=== PATIENT | female | born 1975 | race Two or more races ===

== ENCOUNTER 2017-04-26 07:50 | Emergency (ER) | payer MEDICAID ==
[~2017-04-26] VITALS: Ht 167.6 cm; Wt 71.5 kg
[2017-04-26] MEDS ORDERED: GABA-827 PO (08:04)
[2017-04-26] MEDS ORDERED: SERT50TA5 PO (08:04)
[2017-04-26] MEDS ORDERED: CETI-237 PO (08:04)
[2017-04-26] MEDS ORDERED: HYDR25TA11 PO (08:04)
[2017-04-26] MEDS ORDERED: PANT40TA5 PO (08:04)
[2017-04-26] MEDS ORDERED: KETOROLAC 30 MG/1 ML IM ONE (08:30)
[2017-04-26] MEDS ORDERED: KETOROLAC 30 MG/1 ML ONE (08:33)
[2017-04-26 08:49] LABS: HEMATOCRIT 41.3 % (34.6-47.8); HEMOGLOBIN 13.7 g/dL (11.7-16.4); WHITE BLOOD COUNT 4.8 x10^3/uL (3.4-10)
[2017-04-26] MEDS ORDERED: ONDANSETRON ODT 4 MG ONE (08:53)
[2017-04-26] MEDS ORDERED: ONDANSETRON ODT 4 MG PO ONE (09:00)
[2017-04-26 09:01] LABS: BLOOD UREA NITROGEN 23 mg/dL (7-18)
[2017-04-26 10:04] VITALS: BP 112/76
== END 2017-04-26 10:05 | disposition home or self-care (01) ==
LOC: ED 08:25
DX: M13.0 Polyarthritis, unspecified (principal); J45.909 Unspecified asthma, uncomplicated
CPT/HCPCS: 36415; 80048; 82040; 85025; 96372; 99284; J1885; Q0162

== ENCOUNTER 2017-05-11 19:07 | Emergency (ER) | payer MEDICAID ==
[~2017-05-11] VITALS: Ht 167.6 cm; Wt 70.9 kg
[~2017-05-11 19:07] MED LIST: CETI-237 PO; GABA-827 PO; HYDR25TA11 PO; PANT40TA5 PO; SERT50TA5 PO
[2017-05-11 19:08] VITALS: BP 154/100
[2017-05-11] MEDS ORDERED: SODIUM CHLORIDE 0.9% 1,000ML IVBOLUS ONE (19:30)
[2017-05-11] MEDS ORDERED: KETOROLAC 30 MG/1 ML IVPush ONE (19:30)
[2017-05-11] MEDS ORDERED: PROCHLORPERAZINE 5 MG/ML, 2ML IVPush ONE (19:30)
[2017-05-11] MEDS ORDERED: SODIUM CHLORIDE FLUSH 10ML SYR IVF ONE (19:30)
[2017-05-11] MEDS ORDERED: DIPHENHYDRAMINE 50 MG/ML, 1ML IVPush ONE (19:30)
[2017-05-11] MEDS ORDERED: PROCHLORPERAZINE 5 MG/ML, 2ML ONE (20:27)
[2017-05-11] MEDS ORDERED: KETOROLAC 30 MG/1 ML ONE (20:27)
[2017-05-11] MEDS ORDERED: DIPHENHYDRAMINE 50 MG/ML, 1ML ONE (20:27)
== END 2017-05-11 22:15 | disposition home or self-care (01) ==
LOC: ED 22:09
DX: G43.009 Migraine without aura, not intractable, without status migrainosus (principal); J45.909 Unspecified asthma, uncomplicated
CPT/HCPCS: 96361; 96374; 96375; 99284; J0780; J1200; J1885; J7030

== ENCOUNTER 2017-05-26 01:36 | Emergency (ER) | payer MEDICAID ==
[~2017-05-26] VITALS: Ht 167.6 cm; Wt 77.2 kg
[2017-05-26 01:38] VITALS: BP 124/79
[2017-05-26] MEDS ORDERED: LIDOCAINE 1%, 10ML ONE (02:16)
[2017-05-26] MEDS ORDERED: LIDOCAINE 1%, 20ML SQ ONE (02:30)
== END 2017-05-26 03:00 | disposition home or self-care (01) ==
LOC: ED 01:55
DX: K04.7 Periapical abscess without sinus (principal); G43.909 Migraine, unspecified, not intractable, without status migrainosus; J45.909 Unspecified asthma, uncomplicated
CPT/HCPCS: 41800; 99283

== ENCOUNTER 2017-06-24 22:13 | Emergency (ER) | payer MEDICAID ==
[~2017-06-24] VITALS: Ht 167.6 cm; Wt 65.0 kg
[2017-06-24] MEDS ORDERED: SODIUM CHLORIDE 0.9% 1,000ML IVBOLUS ONE (23:00)
[2017-06-24] MEDS ORDERED: ONDANSETRON 2MG/ML, 2ML IVPush ONE (23:00)
[2017-06-24] MEDS ORDERED: SODIUM CHLORIDE FLUSH 10ML SYR IVF ONE (23:00)
[2017-06-24 23:21] LABS: MEAN CORPUSCULAR HEMOGLOBIN 28.5 pg (27.0-34.8); MEAN CORPUSCULAR HGB CONC 33.1 g/dL (32.4-35.8); MEAN CORPUSCULAR VOLUME 86.2 fL (80-100); MEAN PLATELET VOLUME 7.9 fL (7.4-10.4); PLATELET COUNT 287 x10^3/uL (130-400); RED BLOOD COUNT 4.39 x10^6/uL (3.82-5.3); RED CELL DISTRIBUTION WIDTH 15.6 % (9.6-15.2)
[2017-06-24 23:30] LABS: ALANINE AMINOTRANSFERASE 22 U/L (12-78); ALBUMIN 3.2 g/dL (3.4-5.0); ANION GAP 6 mmol/L (5-15); CALCIUM 8.4 mg/dL (8.5-10.1); CHLORIDE 113 mmol/L (98-107); CREATININE 0.68 mg/dL (0.55-1.02)
[2017-06-24] MEDS ORDERED: FAMOTIDINE 20 MG/2 ML IVP ONE (23:30)
[2017-06-24] MEDS ORDERED: MORPHINE SULFATE 4 MG/ML, 1ML IVPush PRN (23:30)
[2017-06-24 23:35] LABS: ALKALINE PHOSPHATASE 111 U/L (45-117); BILIRUBIN,TOTAL 0.3 mg/dL (0.2-1.0); TOTAL PROTEIN 6.4 g/dL (6.4-8.2)
[2017-06-24] MEDS ORDERED: ONDANSETRON 2MG/ML, 2ML ONE (23:46)
[2017-06-24] MEDS ORDERED: MORPHINE SULFATE 4 MG/ML, 1ML ONE (23:46)
[2017-06-24 23:50] LABS: MICROSCOPIC NOT IND
[2017-06-24] MEDS ORDERED: FAMOTIDINE 20 MG/2 ML ONE (23:54)
[2017-06-24 23:58] LABS: CULTURE INDICATED? NO
[2017-06-25 00:08] LABS: BASOPHILS # (AUTO) 0.04 x10^3/uL (0-0.1); BASOPHILS % (AUTO) 1 % (0-1); EOSINOPHILS # (AUTO) 0.14 x10^3/uL (0-0.4); EOSINOPHILS % (AUTO) 3 % (1-7); LYMPHOCYTES % (AUTO) 61 % (22-44); MD SCAN; MONOCYTES # (AUTO) 0.32 x10^3/uL (0.2-0.8); MONOCYTES % (AUTO) 6 % (2-9); NEUTROPHILS # (AUTO) 1.44 x10^3/uL (1.8-6.8); NEUTROPHILS % (AUTO) 29 % (42-75)
[2017-06-25 00:51] VITALS: BP 142/80
== END 2017-06-25 00:56 | disposition home or self-care (01) ==
LOC: ED 22:23
DX: R10.30 Lower abdominal pain, unspecified (principal); J45.909 Unspecified asthma, uncomplicated; G43.909 Migraine, unspecified, not intractable, without status migrainosus; F25.9 Schizoaffective disorder, unspecified; F31.9 Bipolar disorder, unspecified; Z90.49 Acquired absence of other specified parts of digestive tract; Z90.721 Acquired absence of ovaries, unilateral
CPT/HCPCS: 36415; 80053; 81003; 83690; 84703; 85025; 96361; 96374; 96375; 99285; J2405; J7030; S0028